=== PATIENT | female | born 1970 | race African-American/Black ===

== ENCOUNTER 2016-07-30 06:54 | Emergency (ER) | payer OTHER ==
[2016-07-30 05:10] LABS: BASOPHILS 0.6 %; BASOPHILS ABSOLUTE 0.04 10/3/uL (0.0-0.16); EOSINOPHILS ABSOLUTE 0.68 10/3/uL (0.0-0.53); HEMATOCRIT 35.2 % (36.0-48.0); HEMOGLOBIN 11.8 g/dL (12.0-16.0); IMMATURE GRANULOCYTES 0.1 %; IMMATURE GRANULOCYTES ABSOLUTE 0.01 10/3/uL (0.0-0.11); LYMPHOCYTES 38.5 %; LYMPHOCYTES ABSOLUTE 2.62 10/3/uL (0.67-4.30); MEAN CORPUS HGB CONC 33.5 g/dL (32.0-36.0); MEAN PLATELET VOLUME 8.5 fL (9.2-13.0); MONOCYTES 7.3 %; NEUTROPHILS 43.5 %; NEUTROPHILS ABSOLUTE 2.96 10/3/uL (2.02-8.40); PLATELET COUNT 499 10/3/uL (150-400); RBC DISTRIBUTION WIDTH 14.9 % (12.0-16.0); RED CELL COUNT 3.69 10/6/uL (4.0-5.6); WHITE BLOOD CELLS 6.8 10/3/uL (4.5-10.5)
[2016-07-30 05:12] LABS: ER CBC TAT 0 Hrs 04 MinsNP; MANUAL DIFF NO %; MEAN CORPUSCULAR VOLUME 95.4 fL (80-100)
[2016-07-30 05:17] LABS: INTERNATIONAL NORMAL RATI 0.9 UNITS (-); PARTIAL THROMBO TIME 23.1 SEC (22.5-37.2); PROTIME (NOT ORD) 12.3 SEC (12.0-14.5)
[2016-07-30 05:27] LABS: BUN (BLOOD UREA NITROGEN) 8 MG/DL (6-23); CALCIUM, SERUM 8.9 MG/DL (8.5-10.4); CHEST PAIN PROFILE TAT 0 Hrs 21 Mins; CHLORIDE, SERUM 107 MMOL/L (96-112); CREATININE 0.72 MG/DL (0.55-1.02); GFR AFRICAN AMERICAN 117 ML/MIN (>=60); GFR NON AFRICAN AMERICAN 101 ML/MIN (>=60); GLUCOSE, SERUM 89 MG/DL (60-99); POTASSIUM, SERUM 3.1 MMOL/L (3.5-5.3); SODIUM, SERUM 144 MMOL/L (135-148); TROPONIN I <0.02 NG/ML (<0.05)
[2016-07-30 05:30] LABS: CO2 (CARBON DIOXIDE) 35 MMOL/L (24-34)
== END 2016-07-30 07:10 | disposition home or self-care (01) ==
LOC: ER 06:54
PROVIDERS: Specialist
DX: J45.901 Unspecified asthma with (acute) exacerbation (principal); I10 Essential (primary) hypertension
CPT/HCPCS: 71010; 80048; 83735; 84484; 85025; 85610; 85730; 93005; 94640; 99285